=== PATIENT | female | born 1955 | race Caucasian/White ===

== ENCOUNTER 2020-02-01 14:35 | Inpatient (IN) | payer OTHER ==
[~2020-02-01] VITALS: Ht 170.2 cm; Wt 78.0 kg
[2020-02-01] MEDS ORDERED: SODIUM CHLORIDE FLUSH 10ML SYR IVF ONE (15:30)
--- NOTE | 2020-02-01 15:35 | NUR ---
PT STATES CHEST TIGHTNESS STARTED YESTERDAY. PT DENIES ANY RADIATING PAIN. DENIES N/V. PLACED ON MONITOR, NSR. AND PT HAS HAD PRODUCTIVE COUGH X 1 MONTH "I HAVE ALLERGIES". LABS DRAWN & SENT. DENIES ANY NEEDS. CALL LIGHT INREACH. WILL CTM.
[2020-02-01 16:03] LABS: BASOPHILS # (AUTO) 0.07 x10^3/uL (0-0.1); BASOPHILS % (AUTO) 1 % (0-1); EOSINOPHILS # (AUTO) 0.14 x10^3/uL (0-0.4); EOSINOPHILS % (AUTO) 2 % (1-7); LYMPHOCYTES # (AUTO) 2.08 x10^3/uL (1-3.4); LYMPHOCYTES % (AUTO) 28 % (22-44); MD NO; MEAN CORPUSCULAR HEMOGLOBIN 30.1 pg (27.0-34.8); MEAN CORPUSCULAR HGB CONC 33.2 g/dL (32.4-35.8); MEAN CORPUSCULAR VOLUME 90.7 fL (80-100); MEAN PLATELET VOLUME 7.9 fL (7.4-10.4); MONOCYTES # (AUTO) 0.54 x10^3/uL (0.2-0.8); MONOCYTES % (AUTO) 7 % (2-9); NEUTROPHILS % (AUTO) 61 % (42-75); PLATELET COUNT 268 x10^3/uL (130-400)
[2020-02-01 16:09] LABS: ALANINE AMINOTRANSFERASE 22 U/L (12-78); ALBUMIN 3.6 g/dL (3.4-5.0); ANION GAP 5 mmol/L (5-15); CHLORIDE 111 mmol/L (98-107)
[2020-02-01 16:13] LABS: ALKALINE PHOSPHATASE 75 U/L (45-117); BILIRUBIN,TOTAL 0.4 mg/dL (0.2-1.0); TOTAL PROTEIN 7.5 g/dL (6.4-8.2); TROPONIN I < 0.015 ng/mL (0.000-0.045)
--- NOTE | 2020-02-01 17:13 | NUR ---
PT TO IMAGING
[2020-02-01] MEDS ORDERED: OMNIPAQUE 350 MG/ML, 100ML BOTTLE ONE (17:27)
--- NOTE | 2020-02-01 18:24 | NUR ---
PT UPDATED ON POC, PLAN TO ADMIT, PT CALLED AND UPDATED
[2020-02-01] MEDS ORDERED: ASPIRIN 325 MG TABLET PO ONE (18:31)
--- NOTE | 2020-02-01 18:33 | NUR ---
PT CALLI [phone]. PLEASE CALL HIM FOR UPDATES
--- NOTE | 2020-02-01 18:40 | NUR ---
TP RN: PT TO BE ADMITTED TO CARDIAC TELE. PER CONVERSATION WITH ERP AND SM, NO RESPIRATORY/COVID TESTING AT THIS TIME
[2020-02-01] MEDS ORDERED: morphine SULFATE 10 MG/ML, 1ML IVPush PRN (19:00)
[2020-02-01] MEDS ORDERED: ONDANSETRON ODT 4 MG PO PRN (19:00)
[2020-02-01] MEDS ORDERED: NITROGLYCERIN 0.4 MG BOTTLE (25 TABS) SL PRN (19:00)
[2020-02-01] MEDS ORDERED: BISACODYL 10 MG SUPP PR PRN (19:00)
[2020-02-01] MEDS ORDERED: POLYETHYLENE GLYCOL 17 GM PACKET PO PRN (19:00)
[2020-02-01] MEDS ORDERED: ACETAMINOPHEN 325 MG TABLET PO PRN (19:00)
--- NOTE | 2020-02-01 19:09 | NUR ---
REPORT RECEIVED FROM MELISSA WILLETT. [facility]
[2020-02-01 19:49] VITALS: BP 139/80
[2020-02-01] MEDS: HEPARIN 5,000 UNITS/ML, 1ML SQ SCH (21:00)
[2020-02-01] MEDS: SODIUM CHLORIDE FLUSH 10ML SYR IVF SCH (21:04)
[2020-02-01 21:40] LABS: TROPONIN I < 0.015 ng/mL (0.000-0.045)
[2020-02-02 01:22] VITALS: BP 113/61
[2020-02-02 04:15] LABS: CHOLESTEROL, TOTAL 189 mg/dL (140-239); TRIGLYCERIDES 131 mg/dL (50-200); VLDL CHOLESTEROL 26 mg/dL (0-25)
[2020-02-02 04:18] LABS: CHOL/HDL RATIO 4.3; HDL CHOL % 23 % (28-40); HDL CHOLESTEROL (DIRECT) 44 mg/dL (40-60); LDL CHOLESTEROL,CALCULATED 119 mg/dL (54-169); LDL/HDL RATIO 2.7 (0.5-3.0); TROPONIN I < 0.015 ng/mL (0.000-0.045)
[2020-02-02] MEDS ORDERED: ASPIRIN 325 MG TABLET EC PO SCH (06:00)
[2020-02-02] MEDS: HEPARIN 5,000 UNITS/ML, 1ML SQ SCH ×3 (06:04→22:29)
[2020-02-02] MEDS ORDERED: ASPIRIN 81 MG TABLET EC ONE (06:13)
[2020-02-02 07:45] VITALS: BP 108/67
[2020-02-02] MEDS: SODIUM CHLORIDE FLUSH 10ML SYR IVF SCH ×2 (09:00→21:31)
[2020-02-02] MEDS: SENNA/DOCUSATE TABLET PO SCH (09:00)
[2020-02-02 13:40] VITALS: BP 125/60
[2020-02-02 20:06] VITALS: BP 121/60
[2020-02-02 20:34] VITALS: BP 119/70
[2020-02-02] MEDS: ATORVASTATIN 20 MG TABLET PO SCH (21:30)
[2020-02-03 03:08] VITALS: BP 104/68
[2020-02-03 04:56] LABS: ANION GAP 6 mmol/L (5-15); CALCIUM 8.7 mg/dL (8.5-10.1); CHLORIDE 113 mmol/L (98-107); CREATININE 0.86 mg/dL (0.55-1.02)
[2020-02-03] MEDS: HEPARIN 5,000 UNITS/ML, 1ML SQ SCH ×3 (05:27→21:24)
[2020-02-03] MEDS: ASPIRIN 81 MG TABLET EC PO SCH (06:34)
[2020-02-03 07:30] VITALS: BP 109/70
[2020-02-03] MEDS: SENNA/DOCUSATE TABLET PO SCH (08:27)
[2020-02-03] MEDS: SODIUM CHLORIDE FLUSH 10ML SYR IVF SCH ×2 (08:28→21:25)
[2020-02-03] MEDS ORDERED: MIDAZOLAM 1 MG/ML, 2ML ONE ×2 (10:10→11:29)
[2020-02-03] MEDS ORDERED: FENTANYL PF 100 MCG/2ML ONE (10:10)
[2020-02-03] MEDS ORDERED: LIDOCAINE-MPF 1%, 5ML ONE (10:10)
[2020-02-03] MEDS ORDERED: VERAPAMIL 2.5 MG/ML, 2ML ONE (10:10)
[2020-02-03] MEDS ORDERED: BIVALIRUDIN 250 MG ONE (10:10)
[2020-02-03] MEDS ORDERED: HEPARIN 1,000 UNITS/ML, 10ML ONE (10:11)
[2020-02-03] MEDS ORDERED: PHENYLEPHRINE 10 MG/ML ONE (11:25)
[2020-02-03] MEDS ORDERED: PRASUGREL 10 MG TABLET ONE (11:38)
[2020-02-03] MEDS ORDERED: SODIUM CHLORIDE 0.9% 1,000 ML IV SCH (11:43)
[2020-02-03] MEDS ORDERED: BIVALIRUDIN 250 MG in SODIUM CHLORIDE 0.9% 50 ML IV SCH (11:43)
[2020-02-03] MEDS ORDERED: SODIUM CHLORIDE 0.9% 1,000ML IVBOLUS ONE (12:30)
[2020-02-03] MEDS ORDERED: DOPAMINE/D5W PMX 400 MG/250 ML ONE (14:41)
[2020-02-03] MEDS: ATORVASTATIN 20 MG TABLET PO SCH (21:24)
[2020-02-04] MEDS ORDERED: ONDANSETRON 2MG/ML, 2ML ONE (04:10)
[2020-02-04] MEDS ORDERED: ONDANSETRON 2MG/ML, 2ML IVPush PRN (04:30)
[2020-02-04 04:38] LABS: ANION GAP 8 mmol/L (5-15); CHLORIDE 112 mmol/L (98-107); CREATININE 0.72 mg/dL (0.55-1.02)
[2020-02-04] MEDS: SODIUM CHLORIDE 0.9% 1,000 ML IV SCH ×2 (04:45→14:42)
[2020-02-04] MEDS: HEPARIN 5,000 UNITS/ML, 1ML SQ SCH ×3 (04:50→20:54)
[2020-02-04] MEDS: ASPIRIN 81 MG TABLET EC PO SCH (04:50)
[2020-02-04] MEDS ORDERED: SODIUM CHLORIDE 0.9% 1,000 ML IV SCH (05:00)
[2020-02-04] MEDS: DOPAMINE/D5W PMX 250 ML IV PRN ×2 (06:33→14:43)
[2020-02-04] MEDS: SENNA/DOCUSATE TABLET PO SCH (09:00)
[2020-02-04] MEDS: PRASUGREL 10 MG TABLET PO SCH (09:03)
[2020-02-04] MEDS: SODIUM CHLORIDE FLUSH 10ML SYR IVF SCH ×2 (09:03→20:54)
[2020-02-04] MEDS: ATORVASTATIN 20 MG TABLET PO SCH (20:54)
[2020-02-05] MEDS: SODIUM CHLORIDE 0.9% 1,000 ML IV SCH (01:30)
[2020-02-05] MEDS: ASPIRIN 81 MG TABLET EC PO SCH (05:39)
[2020-02-05] MEDS: HEPARIN 5,000 UNITS/ML, 1ML SQ SCH ×3 (05:40→20:56)
[2020-02-05] MEDS: PRASUGREL 10 MG TABLET PO SCH (09:00)
[2020-02-05] MEDS: SENNA/DOCUSATE TABLET PO SCH (09:00)
[2020-02-05] MEDS: SODIUM CHLORIDE FLUSH 10ML SYR IVF SCH ×2 (09:01→20:57)
[2020-02-05 14:15] VITALS: BP 113/66
[2020-02-05 19:46] VITALS: BP 133/80
[2020-02-05] MEDS: ATORVASTATIN 20 MG TABLET PO SCH (20:56)
[2020-02-06 01:17] VITALS: BP 123/68
[2020-02-06] MEDS: HEPARIN 5,000 UNITS/ML, 1ML SQ SCH (05:40)
[2020-02-06] MEDS: ASPIRIN 81 MG TABLET EC PO SCH (05:40)
[2020-02-06 06:57] VITALS: BP 120/62
[2020-02-06] MEDS ORDERED: METOPROLOL SUCCINATE 25 MG TAB.ER.24H PO SCH (08:00)
[2020-02-06] MEDS ORDERED: METO25TA91 PO (08:17)
[2020-02-06] MEDS ORDERED: ASPI81TA45 PO (08:17)
[2020-02-06] MEDS ORDERED: PRAS10TA4 PO (08:17)
[2020-02-06] MEDS ORDERED: ACET325T26 PO (08:17)
[2020-02-06] MEDS ORDERED: ATOR20TA37 PO (08:17)
[2020-02-06] MEDS ORDERED: NITR0.4T28 SL (08:17)
[2020-02-06] MEDS: SODIUM CHLORIDE FLUSH 10ML SYR IVF SCH (09:14)
[2020-02-06] MEDS: PRASUGREL 10 MG TABLET PO SCH (09:14)
[2020-02-06] MEDS: SENNA/DOCUSATE TABLET PO SCH (09:18)
[2020-02-06 09:19] VITALS: BP 101/64
== END 2020-02-06 12:35 | disposition home or self-care (01) | DRG 247 ==
LOC: ED 16:36 → EDIP 18:32 → 5SO 19:43 → CCU 02-03 12:23 → 5SO 02-05 11:37
PROVIDERS: ADMIT Family Medicine; ATTEND Family Medicine
PROC: 4A023N7 Measurement of Cardiac Sampling and Pressure, Left Heart, Percutaneous Approach (ICD-10-PCS; principal; 2020-02-03)
PROC: 027036Z Dilation of Coronary Artery, One Artery with Three Drug-eluting Intraluminal Devices, Percutaneous Approach (ICD-10-PCS; 2020-02-03)
PROC: B2101ZZ Fluoroscopy of Single Coronary Artery using Low Osmolar Contrast (ICD-10-PCS; 2020-02-03)
PROC: B2151ZZ Fluoroscopy of Left Heart using Low Osmolar Contrast (ICD-10-PCS; 2020-02-03)
DX: R07.9 Chest pain, unspecified (principal); I95.9 Hypotension, unspecified; I25.10 Atherosclerotic heart disease of native coronary artery without angina pectoris; E78.5 Hyperlipidemia, unspecified; Z82.49 Family history of ischemic heart disease and other diseases of the circulatory system; Z86.711 Personal history of pulmonary embolism; Z87.891 Personal history of nicotine dependence; Z90.721 Acquired absence of ovaries, unilateral; Z79.01 Long term (current) use of anticoagulants
CPT/HCPCS: 36415; 93017; 93458; 99285; C9600; 71045; 71275; 78452; 80048; 80053; 80061; 82962; 84484; 85025; 87081; 93005; 93308; 93321; 93325; 99156; 99157; C1769; C1894; G0378; J0583; J1265; J1644; J2250; J2405; J3010; Q9967; A9502; C1725; C1874; C1887; C9898; J2270; J2370; J7030

== ENCOUNTER 2020-02-25 01:30 | Observation (INO) | payer OTHER ==
[~2020-02-25] VITALS: Ht 170.2 cm; Wt 75.3 kg
[~2020-02-25 01:30] MED LIST: ACET325T26 PO; ASPI81TA45 PO; ATOR20TA37 PO; METO25TA91 PO; NITR0.4T28 SL; PRAS10TA4 PO
[2020-02-25] MEDS ORDERED: SODIUM CHLORIDE FLUSH 10ML SYR IVF ONE (02:00)
--- NOTE | 2020-02-25 02:08 | NUR ---
right arm numbnesss, right leg and right side of neck numbness. denies h/x stroke, had cardiac stents x3 placed 02/02. neuro intact. also c/o slight headache throughout the day. PIV placed, labs drawn and questions answered. attached to pulse ox. at bedside.
[2020-02-25 02:14] LABS: BASOPHILS # (AUTO) 0.09 x10^3/uL (0-0.1); BASOPHILS % (AUTO) 1 % (0-1); EOSINOPHILS # (AUTO) 0.26 x10^3/uL (0-0.4); EOSINOPHILS % (AUTO) 4 % (1-7); LYMPHOCYTES # (AUTO) 1.95 x10^3/uL (1-3.4); LYMPHOCYTES % (AUTO) 26 % (22-44); MD NO; MEAN CORPUSCULAR HEMOGLOBIN 30.2 pg (27.0-34.8); MEAN CORPUSCULAR HGB CONC 33.7 g/dL (32.4-35.8); MEAN CORPUSCULAR VOLUME 89.4 fL (80-100); MEAN PLATELET VOLUME 7.7 fL (7.4-10.4); MONOCYTES # (AUTO) 0.52 x10^3/uL (0.2-0.8); MONOCYTES % (AUTO) 7 % (2-9); NEUTROPHILS # (AUTO) 4.58 x10^3/uL (1.8-6.8); NEUTROPHILS % (AUTO) 62 % (42-75); PLATELET COUNT 324 x10^3/uL (130-400); RED BLOOD COUNT 4.45 x10^6/uL (3.82-5.3); RED CELL DISTRIBUTION WIDTH 12.9 % (9.6-15.2)
[2020-02-25 02:24] LABS: ALANINE AMINOTRANSFERASE 23 U/L (12-78); ALBUMIN 3.6 g/dL (3.4-5.0); ANION GAP 6 mmol/L (5-15); CALCIUM 9.1 mg/dL (8.5-10.1); CHLORIDE 111 mmol/L (98-107); CREATININE 0.96 mg/dL (0.55-1.02)
[2020-02-25 02:28] LABS: ALKALINE PHOSPHATASE 86 U/L (45-117); BILIRUBIN,TOTAL 0.3 mg/dL (0.2-1.0); TOTAL PROTEIN 7.4 g/dL (6.4-8.2); TROPONIN I < 0.015 ng/mL (0.000-0.045)
[2020-02-25 02:55] LABS: INTERNATIONAL NORMALIZED RATIO 0.93 (0.93-1.1); PROTHROMBIN TIME 9.8 Seconds (9.6-11.5)
[2020-02-25] MEDS ORDERED: TICA90TA PO (04:26)
[2020-02-25] MEDS ORDERED: ONDANSETRON 2MG/ML, 2ML IVPush PRN (04:30)
[2020-02-25] MEDS ORDERED: OMNIPAQUE 350 MG/ML, 100ML BOTTLE ONE (04:42)
[2020-02-25 05:05] VITALS: BP 121/77
[2020-02-25 05:11] VITALS: BP 121/77
[2020-02-25 07:56] VITALS: BP 125/72
[2020-02-25] MEDS ORDERED: LORazepam 1MG TABLET PO ONE (10:00)
--- NOTE | 2020-02-25 14:03 | NUR ---
Rec: Regular/thins: do not anticipate need for CAMP DISHW[employer]ER intervention in regards to dysphagia at time of discharge. Addendum: 02/25/20 at 1404 by Yola SANTIAGO Amended: Links added.
[2020-02-25 15:59] VITALS: BP 122/80
[2020-02-25 19:19] VITALS: BP 126/72
[2020-02-25] MEDS: TICAGRELOR 90 MG TABLET PO SCH (20:23)
[2020-02-25] MEDS ORDERED: ATORVASTATIN 20 MG TABLET PO SCH (21:00)
[2020-02-26 00:13] VITALS: BP 114/73
[2020-02-26 04:17] VITALS: BP 114/70
[2020-02-26] MEDS ORDERED: ASPIRIN 81 MG TABLET EC PO SCH (06:00)
[2020-02-26 06:48] VITALS: BP 124/79
[2020-02-26] MEDS: TICAGRELOR 90 MG TABLET PO SCH (08:47)
[2020-02-26 12:54] VITALS: BP 133/78
== END 2020-02-26 16:35 | disposition home or self-care (01) ==
LOC: ED 02:13 → UNDOADMIN 04:28 → EDIP 04:28 → INTOOBSV 04:32 → EDIP 04:32 → 4WST 04:56
PROVIDERS: ADMIT Internal Medicine; ATTEND Internal Medicine
DX: R20.2 Paresthesia of skin (principal); I25.10 Atherosclerotic heart disease of native coronary artery without angina pectoris; E78.5 Hyperlipidemia, unspecified; I63.9 Cerebral infarction, unspecified; Z86.711 Personal history of pulmonary embolism; Z79.02 Long term (current) use of antithrombotics/antiplatelets; Z95.5 Presence of coronary angioplasty implant and graft; G43.909 Migraine, unspecified, not intractable, without status migrainosus
CPT/HCPCS: 36415; 70450; 70496; 70498; 70551; 80053; 84484; 85025; 85610; 85730; 92610; 93005; 93306; 93356; 97161; 97165; 99285; G0378; Q9967

== ENCOUNTER 2021-05-15 10:00 | Emergency (ER) | payer OTHER, MEDICARE ==
[~2021-05-15] VITALS: Ht 170.2 cm; Wt 80.0 kg
[~2021-05-15 10:00] MED LIST changes: +TICA90TA PO
--- NOTE | 2021-05-15 10:39 | NUR ---
PT AMBULATORY TO ROOM 34 W/ C/O CP STARTED A FEW WEEKS AGO W/ NUMBNESS RADIATING TO R ARM AND NOW TO L ARM. PT ALSO C/O SLIGHT COCHRAN. DENIES DIZZINESS. PT STATES SHE DID HAD CAD AND STENTS PLACED IN 01/2020. PT DENIES HX PR. IS ON BLOOD THINNERS. PT RESTING ON GURNEY. NADN. MONITORS APPLIED. VSS. WARM BLANKET PROVIDED. CALL LIGHT IN REACH. PIV INITIATED. ERP DR. OLIVEIRA AT BEDSIDE FOR EVAL.
[2021-05-15] MEDS ORDERED: KETOROLAC 30 MG/1 ML ONE (10:42)
[2021-05-15] MEDS ORDERED: KETOROLAC 30 MG/1 ML IVPush ONE (11:00)
[2021-05-15] MEDS ORDERED: SODIUM CHLORIDE FLUSH 10ML SYR IVF ONE (11:00)
[2021-05-15 11:07] LABS: BASOPHILS % (AUTO) 1 % (0-1); EOSINOPHILS % (AUTO) 1 % (1-7); LYMPHOCYTES % (AUTO) 21 % (22-44); MEAN CORPUSCULAR HEMOGLOBIN 30.4 pg (27.0-34.8); MEAN CORPUSCULAR HGB CONC 33.5 g/dL (32.4-35.8); MEAN PLATELET VOLUME 7.5 fL (7.4-10.4); MONOCYTES % (AUTO) 6 % (2-9); NEUTROPHILS % (AUTO) 71 % (42-75); PLATELET COUNT 292 x10^3/uL (130-400); RED BLOOD COUNT 4.74 x10^6/uL (3.82-5.3); RED CELL DISTRIBUTION WIDTH 12.8 % (9.6-15.2)
[2021-05-15 11:13] LABS: ALBUMIN 3.8 g/dL (3.4-5.0); ANION GAP 6 mmol/L (5-15); CALCIUM 9.1 mg/dL (8.5-10.1); CHLORIDE 110 mmol/L (98-107); CREATININE 0.85 mg/dL (0.55-1.02)
[2021-05-15 11:17] LABS: TROPONIN I < 0.015 ng/mL (0.000-0.045)
--- NOTE | 2021-05-15 11:18 | NUR ---
PT RESTING ON GURNEY. NADN. GARCIA.
--- NOTE | 2021-05-15 11:23 | NUR ---
PT CHART REVIEWED AND PLACED FOR RECHECK.
--- NOTE | 2021-05-15 11:25 | NUR ---
ERP DR. OLIVEIRA AT BEDSIDE FOR RE-EVAL.
[2021-05-15] MEDS ORDERED: METHOCARBAMOL 1,000 MG in DEXTROSE 5% 100 ML IV ONE (11:30)
[2021-05-15] MEDS ORDERED: METOCLOPRAMIDE 5 MG/ML, 2ML IVPush ONE (11:30)
[2021-05-15] MEDS ORDERED: METOCLOPRAMIDE 5 MG/ML, 2ML ONE (11:46)
[2021-05-15 12:33] VITALS: BP 118/52
--- NOTE | 2021-05-15 12:33 | NUR ---
PT RESTING ON ARGENIS. ERWIN. VSS. IV MEDICATION INFUSED. PT PLACED FOR RECHECK.
== END 2021-05-15 13:24 | disposition home or self-care (01) ==
LOC: ED 11:14
DX: R07.89 Other chest pain (principal); R20.2 Paresthesia of skin; Z86.711 Personal history of pulmonary embolism
CPT/HCPCS: 36415; 71045; 80048; 82040; 84484; 85025; 93005; 96365; 96375; 99285; J1885; J2765; J2800

== ENCOUNTER 2021-07-29 12:30 | Outpatient (CLI) | payer MEDICARE, OTHER | END 2021-07-29 23:59 | disposition home or self-care (01) | LOC: CFH 12:30 | PROVIDERS: ATTEND Nurse Practitioner Family | DX: I25.10 Atherosclerotic heart disease of native coronary artery without angina pectoris (principal) | CPT/HCPCS: 78452; 93017; A9502 ==